=== PATIENT | male | born 1970 | race African-American/Black ===

== ENCOUNTER 2024-04-05 10:09 | Emergency (ER) | payer OTHER, SELFPAY ==
[2024-04-05 10:14] VITALS: BP 188/84; PULSE 52; RESP 13; TEMP 36.8; O2SAT 100
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
[2024-04-05] MEDS: CYCLOBENZAPRINE HCL 10 MG TABLET PO (12:42)
[2024-04-05] MEDS: KETOROLAC 30 MG/ML VIAL (*BKC) IM (12:43)
[2024-04-05 12:46] VITALS: BP 139/84; PULSE 60; RESP 17; TEMP 36.6; O2SAT 100
== END 2024-04-05 12:54 | disposition home or self-care (01) ==
PROVIDERS: Emergency Provider Emergency Medicine
DX: S39.012A Strain of muscle, fascia and tendon of lower back, initial encounter (principal); S16.1XXA Strain of muscle, fascia and tendon at neck level, initial encounter; M54.16 Radiculopathy, lumbar region; V49.9XXA Car occupant (driver) (passenger) injured in unspecified traffic accident, initial encounter
CPT/HCPCS: 96372; 99283; A9270; J1885

== ENCOUNTER 2024-04-07 18:20 | Emergency (ER) | payer OTHER, SELFPAY ==
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
--- NOTE | ~2024-04-07 | XR_ITS ---
EXAMINATION: XR shoulder LT min 2V DATE: 04/07/2024 19:28 INDICATION: Left shoulder pain TECHNIQUE: AP internally and externally rotated, AP oblique externally rotated and transscapular Y vi ews of the left shoulder were obtained. COMPARISON: None FINDINGS: Normal alignment. No fracture.Mild left glenohumeral osteoarthritis. Moderate left wetzel clavicular osteoarthritis with small heterotopic ossicle along the dorsal capsule. Soft tissues are unremarkabl e. Visualized portion of the left lung are clear. IMPRESSION: Moderate left wetzel clavicular and mild glenohumeral osteoarthritis. No acute osseous abnormality. Reviewed, dictated and finalized at location A.
[2024-04-07 18:23] VITALS: BP 133/76; PULSE 69; RESP 18; TEMP 36.9; O2SAT 100
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
[2024-04-07] MEDS: methylPREDNISolone SOD SUCC 125 MG VIAL IM (19:43)
[2024-04-07] MEDS: KETOROLAC (*BKC) 60 MG/2 ML VIAL IM (19:43)
[2024-04-07 21:30] VITALS: BP 141/82; PULSE 72; RESP 18; O2SAT 100
== END 2024-04-07 21:10 | disposition home or self-care (01) ==
PROVIDERS: Emergency Provider Emergency Medicine
DX: S16.1XXA Strain of muscle, fascia and tendon at neck level, initial encounter (principal); S39.012A Strain of muscle, fascia and tendon of lower back, initial encounter; V89.2XXA Person injured in unspecified motor-vehicle accident, traffic, initial encounter
CPT/HCPCS: 72125; 72128; 72131; 73030; 96372; 99284; J1885; J2919

== ENCOUNTER 2025-01-16 14:10 | Emergency (ER) | payer OTHER, SELFPAY ==
--- OUTSIDE RECORDS SUMMARY | 2025-01-16 14:12 | XMS_ITS | Clinical Summary ---
Author Organization [facility] [employer] Address [address] [place] [address] Care Team Providers Care Web Analyst Name Role Phone Eli Wild LILA-ASSURANCE SENIOR MANAGER Primary Care Provider [phone] Source Comments [facility] [employer],non-owned Affiliates and Associated Physician Practices is amultiple site organization consisting of ambulatory clinics and hospital sitesin [place], [place], [place] and [place]. This disclosure is being madepursuant to the Care Everywhere program and may not contain all information available regarding this patient. Last updated 18.[facility] [employer] Allergies No known active allergies Medications * Be aware that medications may not be up to date on this document. Alwaysverify current medications with the patient. methocarbamol (ROBAXIN) 750 MG tablet Take 1 tablet by mouth every 6 hours 20 tablet 11/25/2017 Active naproxen (NAPROSYN) 500 MG tablet Take 1 tablet by mouth 2 times daily as needed for Pain 20 tablet 11/25/2017 Active guaiFENesin ER 12hr (Mucinex) 600 MG tablet Take 1 (one) tablet by mouth every 12 hours 60 tablet 03/27/2022 Active albuterol HFA (ProAir HFA) 108 (90 Base) MCG/ACT inhaler Inhale 2 (two) puffs by mouth every 4 hours as needed 8.5 g 03/27/2022 Active lidocaine (Lidoderm) 5 % patch Apply 1 (one) patch to skin once daily Apply patch to most painful area and remove after 12 hours. May reapply a new patch 12 hours later. 3 patch 12/20/2023 Active Social History Tobacco Use Types Packs/Day Years Used Date Smoking Tobacco: Never Smokeless Tobacco: Never Alcohol Use Standard Drinks/Week Comments No 0 (1 standard drink = 0.6 oz pur e alcohol) Sex and Gender Information Value Date Recorded Sex Assigned at Not on file Legal Sex Male 2:20 PM CDT Gender Identity Not on file Sexual Orientation Not on file Last Filed Vital Signs Vital Sign Reading Time Taken Comments Blood Pressure 126/68 12/20/2023 1:48 PM CDT Pulse 56 12/20/2023 1:48 PM CDT Temperature 36.1 C (97 F) 12/20/2023 1:48 PM CDT Respiratory Rate 16 12/20/2023 1:48 PM CDT Oxygen Saturation 98% 12/20/2023 1:48 PM CDT Inhaled Oxygen Concentration - - Weight 102.5 kg (226 lb) 12/20/2023 1:48 PM CDT Height 177.8 cm (5' 10) 12/20/2023 1:48 PM CDT Body Mass Index 32.43 12/20/2023 1:48 PM CDT Plan of Treatment Health Maintenance Due Date Last Done Comments COLOGUARD (AGES 45-75) - COL ON CA SCREENING 1968 COLON MONITORING 1968 COLONOSCOPY - COLON CA SCREENING 1968 CT COLONOGRAPHY - COLON CA SCREENING 1968 Colorectal Cancer Screening 1968 FIT - COLON CA SCREENING 1968 FLEX SIG - COLON CA SCREENING 1968 LIPID TESTING 1968 HIV SCREENING 01/20/1983 HEPATITIS C SCREENING 01/16/1986 DTAP/TDAP/TD VACCINES (1 - Tdap) 01/20/1987 HEPATITIS B VACCINE (1 of 3 - 19+ 3-dose series) 01/20/1987 PNEUMOCOCCAL VACCINE 50+ (1 of 1 - PCV) 01/20/2018 ZOSTER VACCINE (1 of 2) 01/20/2018 COVID-19 VACCINE ( - 2023-2 5 season) 2024 DEPRESSION SCREENING 06/18/2024 INFLUENZA VACCINE (#1) 2025 SCREENING FOR DIABETES 12/19/2026 , 03/27/2022 HIB VACCINE Aged Out No longer eligi ble based on patient's age to complete this topic HPV VACCINE Aged Out No longer eligi ble based on patient's age to complete this topic MENINGOCOCCAL (Group B) VACCINE SHARED DECISION-MAKING Aged Out No longer eligible based on patient's age to complete this topic MENINGOCOCCAL GROUPS A/C/Y/W VACCINE Aged Out No longer eligible b ased on patient's age to complete this topic Procedures Procedure Name Priority Date/Time Associated Diagnosis Comments COMPREHENSIVE METABOLIC PANEL STAT 12/20/2023 2:37 PM CDT from Last 3 Months or Most Recently Relevant to Health Maintenance Results * (ABNORMAL) COMPREHENSIVE METABOLIC PANEL (12/20/2023 2:37 PM CDT) BUN 14 7 - 26 mg/dL 12/20/2023 3:07 PM [facility] Creatinine 0.94 0.71 - 1.16 mg/dL 12/20/2023 3:07 PM [facility] Sodium 140 136 - 145 mmol/L 12/20/2023 3:07 PM [facility] Potassium 4.2 3.5 - 4.5 mmol/L 12/20/2023 3:07 PM [facility] Chloride 108(H) 98 - 107 mmol/L 12/20/2023 3:07 PM [facility] CO2 24 22 - 29 mmol/L 12/20/2023 3:07 PM [facility] Glucose 92 70 - 115 mg/dL 12/20/2023 3:07 PM [facility] Calcium 9.7 8.4 - 10.2 mg/dL 12/20/2023 3:07 PM [facility] Protein Total 7.8 6.0 - 8.3 g/dL 12/20/2023 3:07 PM [facility] Albumin 4.0 3.4 - 5.0 g/dL 12/20/2023 3:07 PM [facility] Bilirubin Total 0.5 0.2 - 1.2 mg/dL 12/20/2023 3:07 PM [facility] Alkaline Phosphatase 86 40 - 150 U/L 12/20/2023 3:07 PM [facility] ALT 13 5 - 55 U/L 12/20/2023 3:07 PM [facility] AST 17 5 - 34 U/L 12/20/2023 3:07 PM [facility] Anion Gap 8 6 - 16 12/20/2023 3:07 PM [facility] BUN/Creatinine Ratio 15 7 - 23 12/20/2023 3:07 PM [facility] Osmolality Calculated 290 275 - 295 mOsm/kg 12/20/2023 3:07 PM [facility] Albumin/Globulin Ratio 1.1 1.1 - 2.3 12/20/2023 3:07 PM [facility] eGFR by CKD-EPI >90 >=90 mL/min/1.7 3 m2 12/20/2023 3:07 PM [facility] Blood BLOOD SPECIMEN / Unknown Venipuncture / Unknown 12/20/2023 2:37 PM CDT 12/20/2023 2:41 PM CDT Dragan Saleem PA-C LAB - CHEMISTRY ORDERABLES Final Result [facility] [address] [place] [address], [facility] [phone] from Last 3 Months or Most Recently Relevant to Health Maintenance Insurance [facility] [employer] [employer] [employer] Care Teams Web Analyst Relationship Specialty Start Date End Date Eli Wild, PRINTED CIRCUIT DESIGNER-ASSURANCE SENIOR MANAGER [address] [place] [address] [phone] PCP - General Nurse Practitioner Family 12/20/23
--- OUTSIDE RECORDS SUMMARY | 2025-01-16 14:12 | XMS_ITS | Patient Health Record ---
Author Organization [facility] [facility] Address [address] [place] [address] Care Team Providers Care Junior Systems Analyst Name Role Phone Roman Hoover MD Unavailable Unavailable Reason For Referral No Information Plan Of Treatment No Information
--- OUTSIDE RECORDS SUMMARY | 2025-01-16 14:12 | XMS_ITS | Clinical Summary ---
Author Organization [facility] Address [address] [place] [address] Care Team Providers Care Multi Punch Operator Name Role Phone Roman Hoover MD Primary Care Provider [phone] Allergies No known active allergies Medications ibuprofen (ADVIL,MOTRIN) 600 mg tablet Take 1 tablet (600 mg total) by mouth 4 (four) times a day as needed for pain. Take with food. 30 tablet 06/20/2018 Active naproxen (NAPROSYN) 500 mg tablet Take 1 tablet (500 mg total) by mouth 2 (two) times a day with meals 30 tablet 05/07/2021 Active Active Problems No known active problems Social History Tobacco Use Types Packs/Day Years Used Date Smoking Tobacco: Never Personal Safety Answer Date Recorded Getting School Help Needed Not on file 06/26 Sex and Gender Information Value Date Recorded Sex Assigned at Not on file Legal Sex Male 9:42 PM DIAMOND CUTTER Gender Identity Not on file Sexual Orientation Not on file Obstetrics History Last Filed Vital Signs Vital Sign Reading Time Taken Comments Blood Pressure 138/79 05/07/2021 8:15 PM DIAMOND CUTTER Pulse 62 05/07/2021 8:15 PM DIAMOND CUTTER Temperature 36.4 C (97.5 F) 05/07/2021 6:24 PM DIAMOND CUTTER Respiratory Rate 18 05/07/2021 8:15 PM DIAMOND CUTTER Oxygen Saturation 100% 05/07/2021 8:15 PM DIAMOND CUTTER Inhaled Oxygen Concentration - - Weight 108.9 kg (240 lb) 05/07/2021 6:24 PM DIAMOND CUTTER Height 177.8 cm (5' 10) 05/07/2021 6:08 PM DIAMOND CUTTER Body Mass Index 34.44 05/07/2021 6:08 PM DIAMOND CUTTER Plan of Treatment Not [place] [address] [place] [id number] [employer] Care Teams Multi Punch Operator Relationship Specialty Start Date End Date Roman Hoover MD PCP - General 06/20/18
--- OUTSIDE RECORDS SUMMARY | 2025-01-16 14:12 | XMS_ITS | Clinical Summary ---
Author Organization [facility] Address [address] [place] [id number] Care Team Providers Care Manufacturing Maintenance Manager Name Role Phone Unavailable Primary Care Provider Unavailabl e Social History Tobacco Use Types Packs/Day Years Used Date Smoking Tobacco: Never Assessed Sex and Gender Information Value Date Recorded Sex Assigned at Not on file Legal Sex Male 8:49 AM HEEL SEWER Gender Identity Not on file Sexual Orientation Not on file Plan of Treatment Health Maintenance Due Date Last Done Comments Colorectal Cancer Screening Colonoscopy (10 Years) 1968 Annual Physical 01/20/1971 Hepatitis C 01/20/1986 DTaP, Tdap and Td Vaccines ( 1 - Tdap) 01/20/1987 Hepatitis B Vaccines (1 of 3 - 19+ 3-dose series) 01/20/1987 Pneumococcal Vaccine: 50+ Ye ars (1 of 1 - PCV) 01/20/2018 Zoster Vaccines (1 of 2) 01/20/2018 COVID-19 Vaccine ( - 2023-2 5 season) 2024 PHQ-2 (Physician [place]) 06/18/2024 Meningococcal B Vaccine Aged Out No l onger eligible based on patient's age to complete this topic Meningococcal Vaccine Aged Out No edna sterling eligible based on patient's age to complete this topic RSV Immunizations Under 20 Months Aged Out No longer eligible based on patient's age to complete this topic Insurance [employer]
--- OUTSIDE RECORDS SUMMARY | 2025-01-16 14:12 | XMS_ITS | Referral Summary ---
Author Organization [facility] Address [address] [place] [address] Care Team Providers Care Pasteurizing Machine Operator Name Role Phone Roman Hoover MD Primary Care Provider Allergies No known active allergies Medications ibuprofen [...] on file Legal Sex Male 9:42 PM PRINTER SMALL [employer]INT [employer]OP Gender Identity Not on file Sexual Orientation Not on file Last Filed Vital Signs Vital Sign Reading Time Taken Comments Blood Pressure 138/79 05/07/2021 8:15 PM PRINTER [employer] Pulse 62 05/07/2021 8:15 PM [employer]INTER [employer] Temperature 36.4 C (97.5 F) 05/07/2021 6:24 PM [employer]INTER [employer] Respiratory Rate 18 05/07/2021 8:15 PM [employer] Oxygen Saturation 100% 05/07/2021 8:15 PM [employer] Inhaled Oxygen Concentration - - Weight 108.9 kg (240 lb) 05/07/2021 6:24 PM [employer] Height 177.8 cm (5' 10) 05/07/2021 6:08 PM [employer] Body Mass Index 34.44 05/07/2021 6:08 PM PRINTER [employer] Plan of Treatment [place] [address] [place] [id number] [employer] Care Teams Pasteurizing Machine Operator Relationship Specialty Start Date End Date Roman Hoover MD PCP - General 06/20/18
[2025-01-16 14:30] VITALS: BP 143/62; PULSE 52; RESP 16; TEMP 36.4; O2SAT 100
[2025-01-16 14:55] VITALS: BP 143/62; PULSE 52; RESP 17; TEMP 36.4; O2SAT 100
--- OUTSIDE RECORDS SUMMARY | 2025-01-16 15:11 | XMS_ITS | Clinical Summary ---
Author Organization [facility] [employer] Address [address] [place] [address] Care Team Providers Care Journalism Professor Name Role Phone Eli Wild LILA-GROUP WORK PROGRAM DIRECTOR Primary Care Provider [phone] Source Comments [facility] [employer],non-owned Affiliates and Associated Physician Practices is amultiple site organization consisting of ambulatory clinics and hospital sitesin [place], [place], [place] and [place]. This disclosure is being madepursuant to the Care Everywhere program and may not contain all information available regarding this patient. Last updated 18.[facility] [employer] Allergies No known active allergies Medications * [...] PA-C LAB - CHEMISTRY ORDERABLES Final Result [facility] [address] [place] [address], [facility] [phone] from Last 3 Months or Most Recently Relevant to Health Maintenance Insurance [facility] [employer] GENER[employer] Care Teams Journalism Professor Relationship Specialty Start Date End Date Eli Wild, CORN SHUCKER-GROUP WORK PROGRAM DIRECTOR [address] [place] [address] [id number] PCP - General Nurse Practitioner Family 12/20/23
--- OUTSIDE RECORDS SUMMARY | 2025-01-16 15:11 | XMS_ITS | Referral Summary ---
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 Gender Identity Not on file Sexual Orientation Not on file Last Filed Vital Signs Vital Sign Reading Time Taken Comments Blood Pressure 138/79 05/07/2021 8:15 PM PEARL GLUE OPERATOR Pulse 62 05/07/2021 8:15 PM PEARL GLUE OPERATOR Temperature 36.4 C (97.5 F) 05/07/2021 6:24 PM PEARL GLUE OPERATOR Respiratory Rate 18 05/07/2021 8:15 PM PEARL GLUE OPERATOR Oxygen Saturation 100% 05/07/2021 8:15 PM PEARL GLUE OPERATOR Inhaled Oxygen Concentration - - Weight 108.9 kg (240 lb) 05/07/2021 6:24 PM PEARL GLUE OPERATOR Height 177.8 cm (5' 10) 05/07/2021 6:08 PM PEARL GLUE OPERATOR Body Mass Index 34.44 05/07/2021 6:08 PM PEARL GLUE OPERATOR Plan of Treatment Not on [place] [address] [place] [place] [id number] [employer] Care Teams History Teacher Relationship Specialty Start Date End Date Roman Hoover MD PCP - General 06/20/18
--- OUTSIDE RECORDS SUMMARY | 2025-01-16 15:11 | XMS_ITS | Clinical Summary ---
Author Organization 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 Gender Identity Not on file Sexual Orientation Not on file Obstetrics History Last Filed Vital Signs Vital Sign Reading Time Taken Comments Blood Pressure 138/79 05/07/2021 8:15 PM UNDERCAR SPECIALIST Pulse 62 05/07/2021 8:15 PM UNDERCAR SPECIALIST Temperature 36.4 C (97.5 F) 05/07/2021 6:24 PM UNDERCAR SPECIALIST Respiratory Rate 18 05/07/2021 8:15 PM UNDERCAR SPECIALIST Oxygen Saturation 100% 05/07/2021 8:15 PM UNDERCAR SPECIALIST Inhaled Oxygen Concentration - - Weight 108.9 kg (240 lb) 05/07/2021 6:24 PM UNDERCAR SPECIALIST Height 177.8 cm (5' 10) 05/07/2021 6:08 PM UNDERCAR SPECIALIST Body Mass Index 34.44 05/07/2021 6:08 PM UNDERCAR SPECIALIST Plan of Treatment Not on [place] [address] [place] [id number] [employer] Care Teams Flexographic Press Plate Setter Relationship Specialty Start Date End Date Roman Hoover MD PCP - General 06/20/18
--- OUTSIDE RECORDS SUMMARY | 2025-01-16 15:13 | XMS_ITS | Clinical Summary ---
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
--- NOTE | 2025-01-16 16:11 | ED.GENADULT ---
HPI - General Adult General Chief complaint: Skin/Abscess/Foreign Body Stated complaint: rash to L hand Time Seen by Provider: 01/16/25 15:02 History of Present Illness HPI narrative: 54-year-old male presents to the emergency department for evaluation for exposure to poison serenity. Patient does have rash to hands face and legs. Patient states he was using a weed eater in the y[place] over the course of the weekend began having itching on Sunday and Sunday. Patient has been using topical hydrocortisone, witch Taniya and Caladryl. Related Data Allergies Allergy/AdvReac Type Severity Reaction Status Date / Time No Known Allergies Allergy Verified 01/16/25 14:35 Review of Systems Review of Systems: All systems reviewed & are unremarkable except as noted in HPI and below Exam Narrative: APPEARANCE: Well appearing, no pain, no distress, well-nourished. HEAD: normocephalic, atraumatic. EYES: PERRLA/EOMI, conjunctivae clear. NOSE: Normal no drainage EARS:TMS clear with good light reflex. THROAT: Pharynx clear, no exudate. NECK: Supple. No adenopathy, no masses. RESPIRATORY: Airway patent, respirations nonlabored. Clear to auscultation bilaterally, no rales, rhonchi, wheezing. CARDIOVASCULAR: Regular rate and rhythm without murmurs rubs or gallops. ABDOMINAL: Soft, nontender, nondistended, normal bowel sounds MUSCULOSKELETAL: Moves all extremities. Strength/ROM intact, No edema, No calf tenderness. NEURO: Alert. Cranial nerves II through XII intact. Good gait. Good coordination SKIN: Dermatitic rash to hands face chest and legs Course Vital Signs Vital signs: Vital Signs Temperature 97.5 F L 01/16/25 14:30 Pulse Rate 52 L 01/16/25 14:30 Respiratory Rate 16 01/16/25 14:30 Blood Pressure 143/62 H 01/16/25 14:30 Pulse Oximetry 100 01/16/25 14:30 Oxygen Delivery Room Air 01/16/25 14:30 Temperature 97.5 F L 01/16/25 14:55 Pulse Rate 52 L 01/16/25 14:55 Respiratory Rate 17 01/16/25 14:55 Blood Pressure 143/62 H 01/16/25 14:55 Pulse Oximetry 100 01/16/25 14:55 Oxygen Delivery Room Air 01/16/25 14:55 Medical Decision Making MDM Narrative Medical decision making narrative: 54-year-old male presents emergency department for evaluation for rash suspected to be poison serenity. Patient does have poison serenity rash to face hands neck chest and legs. Patient was started on prednisone and advised to take Benadryl for itching. All questions concerns were addressed patient was comfortable with plan for discharge and close follow-up. Differential Diagnosis Differential Diagnosis: Poison serenity, poison oak, cellulitis Vital Signs Vital Signs: Vital Signs Temperature 97.5 F L 01/16/25 14:30 Pulse Rate 52 L 01/16/25 14:30 Respiratory Rate 16 01/16/25 14:30 Blood Pressure 143/62 H 01/16/25 14:30 Pulse Oximetry 100 01/16/25 14:30 Oxygen Delivery Room Air 01/16/25 14:30 Temperature 97.5 F L 01/16/25 14:55 Pulse Rate 52 L 01/16/25 14:55 Respiratory Rate 17 01/16/25 14:55 Blood Pressure 143/62 H 01/16/25 14:55 Pulse Oximetry 100 01/16/25 14:55 Oxygen Delivery Room Air 01/16/25 14:55 Discharge Plan Discharge Clinical Impression: Contact dermatitis, Allergic dermatitis due to poison serenity Patient Disposition: Home Condition: Stable Instructions: Antibiotic Form, Poison Serenity (ED) Additional Instructions: Steroids as directed. Have close follow-up with your primary care physician. Kaitlyn brooks as directed for your next poison serenity exposure Patient Language: [place] Prescriptions: New prednisone 50 mg tablet 50 mg PO DAILY 5 Days Qty: 5 0RF No Action methylprednisolone [Medrol (Hammad)] 4 mg tablets,dose pack See Rx Instructions .ROUTE .COMPLEX Qty: 21 0RF Rx Instructions: orally per package directions cyclobenzaprine 10 mg tablet 10 mg PO TID PRN (Reason: muscle spasm) Qty: 20 0RF acetaminophen [Tylenol Extra Strength] 500 mg tablet 1,000 mg PO QID PRN (Reason: fever or pain) Qty: 30 0RF naproxen 500 mg tablet 500 mg PO BID PRN (Reason: pain) Qty: 30 0RF Follow-up/Referrals: PHYSICIAN NOT ON STAFF,NONSTAFF [Primary Care Provider] -
== END 2025-01-16 16:21 | disposition home or self-care (01) ==
PROVIDERS: Emergency Provider Emergency Medicine
DX: L23.7 Allergic contact dermatitis due to plants, except food (principal)
CPT/HCPCS: 99283; J7512